=== PATIENT | female | born 1985 | race African-American/Black ===

== ENCOUNTER 2022-02-16 08:50 | Observation (INO) ==
[2022-02-16] MEDS ORDERED: SODIUM CHLORIDE 0.9% 1,000 ML IV STA ×2 (09:24→11:53)
[2022-02-16] MEDS ORDERED: ONDANSETRON 4 MG/2 ML VIAL IV STA (09:24)
[2022-02-16 09:31] LABS: Bacteria,Urine Occasional /HPF (Few); Basophils # 0.1 10*3/uL (0.0-0.2); Basophils % 0.3 % (0.0-0.8); Eosinophils # 0.1 10*3/uL (0.0-0.87); Eosinophils % 0.4 % (0.00-10.9); Hematocrit 46.3 VOL% (35.7-47.0); Hemoglobin 15.2 GM/DL (12.0-16.0); Immature Granulocytes % 0.6 %; Immature Granulocytes Absolute 0.09 #; Lymphocytes # 2.6 10*3/uL (1.4-4.0); Lymphocytes % 16.9 % (21.3-54.2); Mean Corpuscular HGB Conc 32.8 GM/DL (32-36); Mean Corpuscular Volume 85.1 FL (87-102); Mean Platelet Volume 9.7 FL (9.6-12.0); Monocytes # 0.7 10*3/uL (0.11-0.8); Monocytes % 4.7 % (1.7-12.7); Mucus,Urine Occasional /LPF (Occasional); Neutrophils % 77.1 % (38.7-73.9); Platelet Count 328 T/CUMM (130-400); RBC,Urine 5 /HPF (0-4); Red Blood Count 5.44 MC/CUMM (3.8-5.5); Red Cell Distribution Width 12.8 % (9.3-17.3); Squamous Epithelial Cell,Urine Occasional /HPF (0-10); Urine Appearance Clear (Clear); Urine Color Yellow (Yellow); White Blood Count 15.5 T/CUMM (4-12)
[2022-02-16 09:32] LABS: Bilirubin,Urine Negative (Negative); Blood, Urine Moderate mg/dL (Negative); Glucose,Urine (UA) 250 mg/dL (Negative); Ketones,Urine 15 mg/dL (Negative); Nitrite,Urine Negative (Negative); Protein,Urine >=300 mg/dL (Negative); Urine Specific Gravity 1.025 (1.001-1.035); Urine Urobilinogen 0.2 eU/dL (<2.0)
[2022-02-16 09:51] LABS: Albumin 3.8 G/DL (3.4-5.0); Bilirubin,Total 0.9 MG/DL (0.20-1.00); Calcium 9.9 MG/DL (8.5-10.1); Osmolality,Calculated 273.4 MOS/KG (273-304); Potassium 3.1 MMOL/L (3.5-5.1); Total Protein 8.1 G/DL (6.4-8.2)
[2022-02-16 10:04] LABS: Barbiturates Screen,Urine Negative (Negative); Benzodiazepines Screen,Urine Negative (Negative); Cannabinoid Screen,Urine Positive (Negative); Opiate Screen,Urine Negative (Negative); Phencyclidine Screen,Urine Negative (Negative)
[2022-02-16] MEDS ORDERED: PANTOPRAZOLE 40 MG VIAL IV STA (11:49)
[2022-02-16] MEDS ORDERED: PROMETHAZINE INJ 25 MG in SODIUM CHLORIDE 0.9% 50 ML IV STA (11:53)
[2022-02-16] MEDS ORDERED: PROMETHAZINE 25 MG/1 ML VIAL ONE (11:56)
[2022-02-16] MEDS ORDERED: ONDANSETRON 4 MG/2 ML VIAL IV PRN (13:48)
[2022-02-16] MEDS ORDERED: NICOTINE 21 MG/24 HR PATCH TRANSDERM PRN (13:48)
[2022-02-16] MEDS ORDERED: SODIUM CHLORIDE 0.9% 1,000 ML IV SCH (14:00)
[2022-02-16] MEDS: LACTATED RINGERS 1,000 ML IV SCH (14:50)
[2022-02-16] MEDS: INSULIN LISPRO 100 UNIT/ML SUBCUT SCH ×2 (15:48→20:46)
[2022-02-16 16:25] LABS: Hematocrit 41.4 VOL% (35.7-47.0); Hemoglobin 13.7 GM/DL (12.0-16.0)
[2022-02-16] MEDS: METOCLOPRAMIDE 10 MG/2 ML VIAL IV SCH ×2 (17:28→23:48)
[2022-02-16] MEDS: PANTOPRAZOLE 40 MG VIAL IV SCH (20:41)
[2022-02-16] MEDS: POTASSIUM CHLORIDE RIDER 10 MEQ/100 ML PREMIX IV PRN ×4 (20:43→23:50)
[2022-02-16 22:32] LABS: Hematocrit 38.9 VOL% (35.7-47.0); Hemoglobin 12.9 GM/DL (12.0-16.0)
[2022-02-17] MEDS: LACTATED RINGERS 1,000 ML IV SCH ×3 (01:00→14:42)
[2022-02-17 04:43] LABS: Basophils # 0.1 10*3/uL (0.0-0.2); Basophils % 0.5 % (0.0-0.8); Eosinophils # 0.1 10*3/uL (0.0-0.87); Eosinophils % 0.6 % (0.00-10.9); Hematocrit 39.8 VOL% (35.7-47.0); Immature Granulocytes % 0.6 %; Immature Granulocytes Absolute 0.08 #; Lymphocytes # 3.2 10*3/uL (1.4-4.0); Lymphocytes % 24.7 % (21.3-54.2); Mean Corpuscular HGB Conc 32.7 GM/DL (32-36); Mean Corpuscular Volume 86.3 FL (87-102); Mean Platelet Volume 9.8 FL (9.6-12.0); Monocytes # 0.9 10*3/uL (0.11-0.8); Monocytes % 6.8 % (1.7-12.7); Neutrophils % 66.8 % (38.7-73.9); Platelet Count 267 T/CUMM (130-400); Red Blood Count 4.61 MC/CUMM (3.8-5.5); Red Cell Distribution Width 12.6 % (9.3-17.3)
[2022-02-17 05:04] LABS: Albumin 3.2 G/DL (3.4-5.0); Bilirubin,Total 0.9 MG/DL (0.20-1.00); Calcium 8.4 MG/DL (8.5-10.1); Osmolality,Calculated 279.8 MOS/KG (273-304); Total Protein 6.3 G/DL (6.4-8.2)
[2022-02-17] MEDS: METOCLOPRAMIDE 10 MG/2 ML VIAL IV SCH ×2 (06:14→12:10)
[2022-02-17] MEDS ORDERED: LACTATED RINGERS 1,000 ML IV SCH (08:00)
[2022-02-17] MEDS ORDERED: LIDOCAINE 2% 5 ML VIAL ONE (09:47)
[2022-02-17] MEDS ORDERED: propofoL 200 MG/20 ML VIAL IV ONE (09:47)
[2022-02-17] MEDS: INSULIN LISPRO 100 UNIT/ML SUBCUT SCH ×2 (11:49)
[2022-02-17] MEDS: PANTOPRAZOLE 40 MG VIAL IV SCH (12:10)
[2022-02-17 15:08] VITALS: BP 150/97
== END 2022-02-17 16:34 | disposition home or self-care (01) ==
LOC: N.ED 08:50 → N.EDINP 08:50 → SUATTDRO 13:46 → N.2W 14:51
PROVIDERS: ADMIT Internal Medicine; ATTEND Internal Medicine